=== PATIENT | female | born 1950 | race Caucasian/White ===

== ENCOUNTER 2017-12-28 13:47 | Emergency (ER) | payer MEDICARE, OTHER ==
[~2017-12-28] VITALS: Ht 162.6 cm; Wt 83.9 kg
[~2017-12-28 13:47] MED LIST: EFFEXOR XR75 MG PO; PRILOSEC20 MG PO; PROMETHAZINE HC50 MG PO; TOPAMAX200 MG PO; VICODIN ES 7.51 EACH PO
[2017-12-28] MEDS ORDERED: ONDANSETRON HCL INJ 2 MG/ML VIAL IV STA (13:56)
[2017-12-28] MEDS ORDERED: MORPHINE SULFATE INJ 4 MG/ML INJ IV STA (13:56)
[2017-12-28] MEDS ORDERED: SODIUM CHLORIDE 0.9% 1000ML 1,000 ML IV SCH (14:00)
[2017-12-28] MEDS ORDERED: LORAZEPAM INJ 2 MG/ML VIAL IV ONE (14:15)
[2017-12-28 15:38] VITALS: BP 160/90
[2017-12-29] MEDS ORDERED: DIAZEPAM 5 MG TAB PO SCH (09:00)
== END 2017-12-28 15:17 | disposition home or self-care (01) ==
LOC: FSED 13:47
DX: G43.709 Chronic migraine without aura, not intractable, without status migrainosus (principal)
CPT/HCPCS: 80053; 85025; 96374; 96375; 99283; J2060; J2270; J2405; J7030

== ENCOUNTER 2018-09-04 23:06 | Emergency (ER) | payer MEDICARE, OTHER ==
[~2018-09-04] VITALS: Ht 165.1 cm; Wt 83.9 kg
--- OUTSIDE RECORDS SUMMARY | 2018-09-04 23:09 | XMS REPORT | Continuity of Care Document ---
Author Author [facility] Interface Address Unknown Phone Unavailable Problems Problem Status Onset Date Classification Date Reported Comments Source RT HIP, RT TKR Active 09/11/2017 [facility] Unilateral primary osteoarthritis, right knee 08/29/2017 11/28/2017 [facility] UNK Active 07/18/2017 [facility]11 Active 07/18/2017 [facility] M17.11 UNILATERAL OA RIGHT KNEE Active 07/11/2017 [facility] Muscle weakness 11/28/2017 [facility] Unsteadiness on feet 11/04/2017 [facility] Unspecified abnormalities of gait and mobility 11/04/2017 [facility] Bacterial pneumonia Resolved Problem 11/28/2017 [facility] Bronchitis Resolved Problem 11/28/2017 [facility] DDD , cervical(<span ID="[id number]">Confirmed</span>) Active Problem 11/28/2017 [facility] Chronic knee pain Active Problem 11/28/2017 [facility] Chronic migraine Active Problem 11/28/2017 [facility] MVP (<span ID="[id number]">Confirmed</span>) Active Problem 11/28/2017 [facility] Anxiety and depression Active Problem 11/28/2017 [facility] Motion sickness Active Problem 11/28/2017 [facility] Stiffness of right knee, not elsewhere classified 11/28/2017 [facility] Pain in right knee 11/28/2017 [facility] Difficulty in walking, not elsewhere classified 11/28/2017 [facility] UNILATERAL PRIMARY OSTEOARTHRITIS, RIGHT Active [facility] ENCOUNTER FOR OTHER ORTHOPEDIC AFTERCARE Active [facility] STIFFNESS OF UNSPECIFIED HIP, NOT ELSEWH Active [facility] PAIN IN UNSPECIFIED HIP Active [facility] MUSCLE WEAKNESS (GENERALIZED) Active [facility] UNSTEADINESS ON FEET Active [facility] UNSPECIFIED ABNORMALITIES OF GAIT AND MO Active [facility] Medications Medication Details Route Status Patient Instructions Ordering Provider Order Date Source Acetaminophen 325 MG / Hydrocodone Bitartrate 7.5 MG Oral Tablet [[place] 7.5/325] 1 tab, PO, Q6H, PRN Pain, X 15 day, # 50 tab, 0 Refill(s), given to patient Active 09/13/2017 [facility] Acetaminophen 325 MG / Hydrocodone Bitartrate 7.5 MG Oral Tablet [[place] 7.5/325] 1 tab, Route: PO, Drug Form: TAB, Dosing Weight 84.545, kg, Q6H, PRN Pain Score 4-6, Start date: 09/13/17 12:29:00 CDT, Duration: 30 day, Stop date: 10/13/17 12:28:00 CDT Inactive 09/13/2017 [facility] Streptococcus pneumoniae serotype 1 capsular antigen diphtheria [id number] protein conjugate vaccine / Streptococcus pneumoniae serotype 14 capsular antigen diphtheria [id number] protein conjugate vaccine / Streptococcus pneumoniae serotype 18C capsular antigen d 0.5 mL, Route: IM, Drug Form: INJ, Daily, Start date: 09/12/17 12:00:00 CDT, Duration: 1 doses or times, Stop date: 09/12/17 12:00:00 CDTNotes: Shake well prior to use (Same as: Prevnar 13) Inactive 09/12/2017 [facility] Aspirin 325 MG Enteric Coated Tablet 325 mg=1 tab, PO, Q12H, # 60 tab, 0 Refill(s) Active 09/12/2017 [facility] ketOROLAC 15 mg/mL injectable solution 15 mg, 1 mL, Route: IV, Drug form: INJ, ONCE, Start date: 09/12/17 10:00:00 CDT, Stop date: 09/12/17 10:00:00 CDTNotes: (Same as:Toradol) IV bolus must be given >15 seconds. Give IM administration slowly and deeply into the muscle. Not for use > 4 days. Inactive 09/12/2017 [facility] venlafaxine 150 mg, 1 cap, Route: PO, Drug form: ERCAP, Daily, Dosing Weight 84.545, kg, Start date: 09/12/17 9:00:00 CDT, Duration: 30 day, Stop date: 10/11/17 9:00:00 CDTNotes: Do not open, crush, or chew. (Same As: Effexor XR) No Longer Active 09/12/2017 [facility] ropinirole 0.25 mg, 1 tab, Route: PO, Drug form: TAB, Daily, Dosing Weight 84.545, kg, Start date: 09/12/17 9:00:00 CDT, Duration: 30 day, Stop date: 10/11/17 9:00:00 CDTNotes: (Same as: Requip) No Longer Active 09/12/2017 [facility] Ketorolac 30 mg, Route: IVP, Drug form: INJ, ONCE, Dosing Weight 84.545, kg, Start date: 09/12/17 8:48:00 CDT, Stop date: 09/12/17 8:48:00 CDT Inactive 09/12/2017 [facility] topiramate 100 mg, 1 tab, Route: PO, Drug form: TAB, Bedtime, Dosing Weight 84.545, kg, Start date: 09/11/17 21:00:00 CDT, Duration: 30 day, Stop date: 10/10/17 21:00:00 CDTNotes: (Same As: Topamax) "Do Not Crush" No Longer Active 09/12/2017 [facility] sennosides, S[facility] 17.2 mg, 2 tab, Route: PO, Drug Form: TAB, Dosing Weight 82.682, kg, Bedtime, Start date: 09/11/17 21:00:00 CDT, Duration: 30 day, Stop date: 10/10/17 21:00:00 CDTNotes: (Same as: Senokot) No Longer Active 09/12/2017 [facility] Vancomycin 1,000 mg, Route: IVPB, Q12H, Dosing Weight 82.682, kg, Time Critical Medication, Start date: 09/11/17 18:00:00 CDT, Duration: 2 doses or times, Stop date: 09/12/17 6:00:00 CDT, Pharmacy to adjust dose for renal function, ABX Indication: Surgical Proph...Notes: TIME CRITICAL MEDICATION (Same As: Vancocin) Infusion rate 2001 mg: infuse over 2.5 hours For adult patients only: Round to nearest 250 mg per Medical Staff approval MEDICATION WASTE Product Size: 1000 mg Product Wasted: ___ mg No Longer Active 09/11/2017 [facility] gabapentin 300 MG Oral Capsule 300 mg, 1 cap, Route: PO, Drug form: CAP, TID, Dosing Weight 84.545, kg, Start date: 09/11/17 13:00:00 CDT, Duration: 30 day, Stop date: 10/11/17 9:00:00 CDT Inactive 09/11/2017 [facility] Acetaminophen 1,000 mg, 2 tab, Route: PO, Drug form: TAB, Q6H, Dosing Weight 82.682, kg, Start date: 09/11/17 13:00:00 CDT, Duration: 30 day, Stop date: 10/11/17 7:00:00 CDTNotes: Max acetaminophen 4000 mg/day (4 gm/day). (Same as: Tylenol Extra Strength) No Longer Active 09/11/2017 [facility] Aspirin 325 mg, Route: PO, Q12H, Dosing Weight 82.682, kg, For patients with risk of bleeding, Start date: 09/11/17 12:32:00 CDT, Stop date: 10/11/17 9:00:00 CDT Inactive 09/11/2017 [facility] Aspirin 325 mg, 1 tab, Route: PO, Drug form: ECTAB, Q12H, Dosing Weight 82.682, kg, For patients with risk of bleeding, Start date: 09/11/17 12:30:00 CDT, Duration: 30 day, Stop date: 10/11/17 9:00:00 CDTNotes: (Do Not Crush) Do not crush or chew. No Longer Active 09/11/2017 [facility] Tramadol 100 mg, 2 tab, Route: PO, Drug form: TAB, Q6H, Dosing Weight 82.682, kg, Start date: 09/11/17 10:02:00 CDT, Duration: 30 day, Stop date: 10/11/17 4:00:00 CDTNotes: Not to exceed 400mg/day. (Same As: Ultram) No Longer Active 09/11/2017 [facility] gabapentin 300 mg, 1 cap, Route: PO, Drug form: CAP, Q8H, Dosing Weight 82.682, kg, Start date: 09/11/17 10:01:00 CDT, Duration: 30 day, Stop date: 10/11/17 2:00:00 CDTNotes: (Same as: Neurontin) No Longer Active 09/11/2017 [facility] celecoxib 200 mg, 1 cap, Route: PO, Drug form: CAP, Q12H, Dosing Weight 82.682, kg, Start date: 09/11/17 10:00:00 CDT, Duration: 30 day, Stop date: 10/10/17 21:00:00 CDTNotes: NSAID. Please check indication. Not for seizure. (Same As: CeleBREX) No Longer Active 09/11/2017 [facility] Hydrocodone Bitartrate 7.5 MG / Ibuprofen 200 MG Oral Tablet 1 tab, Route: PO, Drug Form: TAB, Dosing Weight 82.682, kg, Q4H, PRN Pain Score 4-6, Start date: 09/11/17 9:46:00 CDT, Duration: 30 day, Stop date: 10/11/17 9:45:00 CDTNotes: (Same as: Vicoprofen) No Longer Active 09/11/2017 [facility] Docusate 100 mg, 1 cap, Route: PO, Drug form: CAP, BID, Dosing Weight 82.682, kg, Start date: 09/11/17 9:00:00 CDT, Duration: 30 day, Stop date: 10/10/17 17:00:00 CDTNotes: (Same as: Colace) (Do Not Crush) No Longer Active 09/11/2017 [facility] Aspirin 325 MG Enteric Coated Tablet 325 mg, Route: PO, Drug form: ECTAB, BID, Dosing Weight 82.682, kg, Start date: 09/11/17 9:00:00 CDT, Duration: 30 day, Stop date: 10/10/17 17:00:00 CDT Inactive 09/11/2017 [facility] Mupirocin 1 appl, Route: NASAL, Q12H, Drug form: OINT, Start date: 09/11/17 9:00:00 CDT, Duration: 30 day, Stop date: 10/10/17 21:00:00 CDT No Longer Active 09/11/2017 [facility] Al hydroxide/Mg hydroxide/simethicone 200 mg-200 mg-20 mg/5 mL oral suspension 30 mL, Route: PO, Drug Form: SUSP, Dosing Weight 82.682, kg, Q4H, PRN Indigestion, Start date: 09/11/17 8:32:00 CDT, Duration: 30 day, Stop date: 10/11/17 8:31:00 CDTNotes: (aluminum hydroxide-magnesium hyd- simethicone [phone]/5ml 30 ml ud MAC) No Longer Active 09/11/2017 [facility] tizanidine 2 mg, 0.5 tab, Route: PO, Drug form: TAB, Q6H, Dosing Weight 82.682, kg, PRN Muscle Spasms, Start date: 09/11/17 8:32:00 CDT, Duration: 30 day, Stop date: 10/11/17 8:31:00 CDTNotes: (Same As: Zanaflex) No Longer Active 09/11/2017 [facility] Diphenhydramine 12.5 mg, 0.5 tab, Route: PO, Drug form: TAB, Q6H, Dosing Weight 82.682, kg, PRN Itching, Start date: 09/11/17 8:32:00 CDT, Duration: 30 day, Stop date: 10/11/17 8:31:00 CDT No Longer Active 09/11/2017 [facility] Ondansetron 4 mg, 2 mL, Route: IVP, Drug form: INJ, Q8H, Dosing Weight 82.682, kg, PRN Nausea & Vomiting, Start date: 09/11/17 8:32:00 CDT, Duration: 30 day, Stop date: 10/11/17 8:31:00 CDTNotes: (Same as: Zofran) MEDICATION WASTE Product Size: 4 mg Product Wasted: ___ mg No Longer Active 09/11/2017 [facility] Trazodone 50 mg, 1 tab, Route: PO, Drug form: TAB, Bedtime, Dosing Weight 82.682, kg, PRN Insomnia, Start date: 09/11/17 8:32:00 CDT, Duration: 30 day, Stop date: 10/11/17 8:31:00 CDTNotes: (Same As: Desyrel) No Longer Active 09/11/2017 [facility] Hydromorphone 1 mg, 0.5 tab, Route: PO, Drug form: TAB, Q4H, Dosing Weight 82.682, kg, PRN Pain Score 7-10, Start date: 09/11/17 8:32:00 CDT, Stop date: 10/11/17 8:31:00 CDTNotes: (Same as: Dilaudid) No Longer Active 09/11/2017 [facility] Oxycodone Hydrochloride 5 MG Oral Tablet 10 mg, 2 tab, Route: PO, Drug form: TAB, Q4H, Dosing Weight 82.682, kg, PRN Pain Score 7-10, Start date: 09/11/17 8:32:00 CDT, Duration: 30 day, Stop date: 10/11/17 8:31:00 CDTNotes: (Same as: Roxicodone) No Longer Active 09/11/2017 [facility] 1/2 NS 1,000 mL 1,000 mL, Rate: 75 ml/hr, Infuse over: 13.3 hr, Route: IV, Dosing Weight 82.682 kg, Total Volume: 1,000, Start date: 09/11/17 8:32:00 CDT, Duration: 30 day, Stop date: 10/11/17 8:31:00 CDT, 1.96, m2 No Longer Active 09/11/2017 [facility] tranexamic acid (ANES) Route: IV, Drug form: INJ, ONCE, Stop date: 09/11/17 8:11:00 CDT Inactive 09/11/2017 [facility] Ondansetron 4 mg, 2 mL, Route: IVP, Drug form: INJ, ONCE, Dosing Weight 82.682, kg, PRN Nausea & Vomiting, Start date: 09/11/17 8:10:00 CDTNotes: (Same as: Zofran) MEDICATION WASTE Product Size: 4 mg Product Wasted: ___ mg Inactive 09/11/2017 [facility] Fentanyl 25 microgram, 0.5 mL, Route: IVP, Drug form: INJ, Q5Min, Dosing Weight 82.682, kg, PRN Pain Score 4-6, Priority: Routine, Start date: 09/11/17 8:10:00 CDT, Duration: 4 doses or times, Stop date: 09/12/17 0:00:00 CDTNotes: (Same as: Sublimaze) Preservative free. Inactive 09/11/2017 [facility] Flumazenil 0.2 mg, 2 mL, Route: IVP, Drug form: INJ, PRN, Dosing Weight 82.682, kg, PRN Benzodiazepine Reversal, Initial dose, Start date: 09/11/17 8:10:00 CDT, Stop date: 09/12/17 0:00:00 CDTNotes: (Same as: R omazicon) Inactive 09/11/2017 [facility] Naloxone 0.4 mg, 1 mL, Route: IVP, Drug form: INJ, Q2MIN, Dosing Weight 82.682, kg, PRN Narcotic Reversal, Start date: 09/11/17 8:10:00 CDT, Duration: 8 doses or times, Stop date: 09/12/17 0:00:00 CDTNotes: Same as Narcan Inactive 09/11/2017 [facility] Metoprolol 1 mg, 1 mL, Route: IVP, Drug form: INJ, Q5Min, Dosing Weight 82.682, kg, PRN Other -See Comment, Start date: 09/11/17 8:10:00 CDT, Duration: 5 doses or times, Stop date: 09/12/17 0:00:00 CDTNotes: (Same as: Lopressor) Push over 2 minutes Inactive 09/11/2017 [facility] phenylephrine (ANES) Route: IV, Drug form: INJ, ONCE, Stop date: 09/11/17 7:46:00 CDT Inactive 09/11/2017 [facility] ondansetron (ANES) Route: IV, Drug form: INJ, ONCE, Stop date: 09/11/17 7:31:00 CDT Inactive 09/11/2017 [facility] famotidine (ANES) Route: IV, Drug form: INJ, ONCE, Stop date: 09/11/17 7:31:00 CDT Inactive 09/11/2017 [facility] dexamethasone (ANES) Route: IV, Drug form: INJ, ONCE, Stop date: 09/11/17 7:31:00 CDT Inactive 09/11/2017 [facility] acetaminophen (ANES) Route: IV, Drug form: INJ, ONCE, Stop date: 09/11/17 7:31:00 CDT Inactive 09/11/2017 [facility] propofol (ANES) Route: IV, Drug form: INJ, ONCE, Stop date: 09/11/17 7:31:00 CDT Inactive 09/11/2017 [facility] fentaNYL (ANES) Route: IV, Drug form: INJ, ONCE, Stop date: 09/11/17 7:31:00 CDT Inactive 09/11/2017 [facility] vancomycin (ANES) Route: IV, Drug form: INJ, ONCE, Stop date: 09/11/17 7:31:00 CDT Inactive 09/11/2017 [facility] lidocaine (ANES) Route: IV, Drug form: INJ, ONCE, Stop date: 09/11/17 7:31:00 CDT Inactive 09/11/2017 [facility] ropivacaine 100 mL, Route: InFILtration(local), Drug Form: INJ, Dosing Weight 82.682, kg, ONCALL, Start date: 09/11/17 7:00:00 CDT, Duration: 30 day, Stop date: 10/11/17 6:59:00 CDT Inactive 09/11/2017 [facility] Cefazolin 2 gm, Route: IVPB, ONCALL, Dosing Weight 82.682, kg, Start date: 09/11/17 7:00:00 CDT, Duration: 1 doses or times, ABX Indication: Surgical Prophylaxis Inactive 09/11/2017 [facility] celecoxib 400 mg, Route: PO, ONCALL, Dosing Weight 82.682, kg, (for CrCl > 90 mL/min), Start date: 09/11/17 7:00:00 CDT, Duration: 30 day, Stop date: 10/11/17 6:59:00 CDT Inactive 09/11/2017 [facility] gabapentin 300 mg, Route: PO, ONCALL, Dosing Weight 82.682, kg, Start date: 09/11/17 7:00:00 CDT, Duration: 30 day, Stop date: 10/11/17 6:59:00 CDT Inactive 09/11/2017 [facility] Vancomycin 1,240.23 mg, Route: IVPB, ONCALL, Dosing Weight 82.682, kg, Start date: 09/11/17 7:00:00 CDT, Duration: 1 doses or times, ABX Indication: Surgical Prophylaxis Inactive 09/11/2017 [facility] Lactated Ringers Injection IV (ANES) 1000 mL Route: IV, Total Volume: 1,000, Start date: 09/11/17 6:30:00 CDT, Stop date: 09/11/17 7:30:00 CDT Inactive 09/11/2017 [facility] Calcium Chloride 0.0014 MEQ/ML / Potassium Chloride 0.004 MEQ/ML / Sodium Chloride 0.103 MEQ/ML / Sodium Lactate 0.028 MEQ/ML Injectable Solution 1,000 mL, Rate: 25 ml/hr, Infuse over: 40 hr, Route: IV, Dosing Weight 82.682 kg, Total Volume: 1,000, Start date: 09/11/17 6:26:00 CDT, Duration: 30 day, Stop date: 10/11/17 6:25:00 CDT, 1.96, m2 Inactive 09/11/2017 [facility] ropivacaine 100 mL, Route: InFILtration(local), Drug Form: INJ, Dosing Weight 82.682, kg, ONCALL, Start date: 09/11/17 5:00:00 CDT, Duration: 30 day, Stop date: 10/11/17 4:59:00 CDTNotes: NOT FOR IV use Ropivacaine 5 mg/mL (49.25 mL) Epinephrine 1 mg/mL (0.5 mL) Clonidine 0.1 mg/mL (0.8 mL) Ketorolac 30 mg/mL (1 mL) Normal Saline 48.45 mL No Longer Active 09/11/2017 [facility] gabapentin 300 MG Oral Capsule 300 mg=1 cap, PO, TID, # 90 cap, 0 Refill(s) Active 08/29/2017 [facility] promethazine 50 mg oral tablet 50 mg=1 tab, PO, BID, 0 Refill(s) Active 08/29/2017 [facility] venlafaxine 150 mg oral capsule, extended release 150 mg=1 cap, PO, Daily, # 30 cap, 0 Refill(s) Active 08/29/2017 [facility] Acetaminophen 325 MG / Hydrocodone Bitartrate 10 MG Oral Tablet [[place] 10/325] 1 tab, PO, TID, PRN Pain, # 90 day, 0 Refill(s) No Longer Active 08/29/2017 [facility] rOPINIRole 0.25 mg oral tablet 0.25 mg=1 tab, PO, Daily, # 30 tab, 1 Refill(s) Active 08/29/2017 [facility] topiramate 100 mg oral tablet 100 mg=1 tab, PO, Bedtime, 0 Refill(s) Active 08/29/2017 [facility] Hydrocodone Bit/Acetaminophen (Vicodin Es 7.5-750 Mg Tablet) 1 Each Tablet Active [facility] Omeprazole (Prilosec) 20 Mg Capsule.dr Daily Active [facility] Promethazine Hcl 50 Mg Tablet Active [facility] Topiramate (Topamax) 200 Mg Tablet Three Times A Day Active [facility] Venlafaxine Hcl (Effexor Xr) 75 Mg Cap.er.24h Daily Active [facility] Allergies, Adverse Reactions, Alerts Substance Category Reaction Severity Reaction type Status Date Reported Comments Source Penicillin Mild Allergy to Substance Active 03/19/2013 [facility] penicillin Assertion Drug allergy Active [facility] Immunizations Immunization Date Given Site Status Last Updated Comments Source pneumococcal 13-valent vaccine 09/12/2017 Left deltoid completed [facility] Results Order Name Results Value Reference Range Date Interpretation Comments Source HEMATOLOGY Hct 32.3 % 36.0 - 48.0 09/12/2017 [facility] HEMATOLOGY Hgb 10.8 g/dL 12.0 - 16.0 09/12/2017 [facility] CHEM PANEL eGFR 73 mL/min/1.73m2 09/11/2017 Result Comment: The eGFR is calculated using the CKD-EPI formula. In most young, healthy individuals the eGFR will be >90 mL/min/1.73m2. The eGFR declines with age. An eGFR of 60-89 may be normal in some populations, particularly the elderly, for whom the CKD-EPI formula has not been extensively validated. Use of the eGFR is not recommended in the following populations: Individuals with unstable creatinine concentrations, including patients and those with serious co-morbid conditions. Patients with extremes in muscle mass or diet. The data above are obtained from the National Kidney Disease Education Program (NKDEP) which additionally recommends that when the eGFR is used in patients with extremes of body mass index for purposes of drug dosing, the eGFR should be multiplied by the estimated BMI. [facility] CHEM PANEL CO2 19 meq/L 24 - 32 09/11/2017 [facility] CHEM PANEL Calcium Lvl 8.5 mg/dL 8.5 - 10.5 09/11/2017 [facility] CHEM PANEL Chloride Lvl 114 meq/L 95 - 109 09/11/2017 [facility] CHEM PANEL Potassium Lvl 4.6 meq/L 3.5 - 5.1 09/11/2017 [facility] CHEM PANEL Sodium Lvl 141 meq/L 135 - 145 09/11/2017 [facility] CHEM PANEL Creatinine Lvl 0.84 mg/dL 0.50 - 1.40 09/11/2017 [facility] CHEM PANEL BUN 16 mg/dL 7 - 22 09/11/2017 [facility] CHEM PANEL Glucose Lvl 105 mg/dL 70 - 99 09/11/2017 [facility] CHEM PANEL AGAP 12.6 meq/L 10.0 - 20.0 09/11/2017 [facility] PT 13.5 s 12.0 - 14.7 09/11/2017 [facility] INR 1.03 0.85 - 1.17 09/11/2017 [facility] MPV 7.6 fL 7.4 - 10.4 09/11/2017 [facility] Platelet 272 K/CMM 133 - 450 09/11/2017 [facility] RDW 13.7 % 11.5 - 14.5 09/11/2017 [facility] MCHC 33.0 g/dL 32.0 - 36.0 09/11/2017 [facility] MCH 34.1 pg 27.0 - 31.0 09/11/2017 [facility] MCV 103.3 fL 80.0 - 98.0 09/11/2017 [facility] Hct 37.4 % 36.0 - 48.0 09/11/2017 [facility] Hgb 12.4 g/dL 12.0 - 16.0 09/11/2017 [facility] RBC 3.62 M/CMM 4.20 - 5.40 09/11/2017 [facility] WBC 12.4 K/CMM 3.7 - 10.4 09/11/2017 [facility] Macrocyte 1+ *ABN* (09/11/17 11:05 AM) None Seen 09/11/2017 [facility] HEMATOLOGY Monocytes # 0.2 K/CMM 0.0 - 0.8 09/11/2017 [facility] HEMATOLOGY Lymphocytes # 1.0 K/CMM 1.0 - 5.5 09/11/2017 [facility] HEMATOLOGY Segs-Bands # 11.2 K/CMM 1.5 - 8.1 09/11/2017 [facility] HEMATOLOGY Basophils 0.2 % 0.0 - 1.0 09/11/2017 [facility] HEMATOLOGY Lymphocytes 8.2 % 20.0 - 40.0 09/11/2017 [facility] HEMATOLOGY Segs 90.1 % 45.0 - 75.0 09/11/2017 [facility] HEMATOLOGY Eosinophils 0.1 % 0.0 - 4.0 09/11/2017 [facility] HEMATOLOGY Monocytes 1.4 % 2.0 - 12.0 09/11/2017 [facility] SPECIAL CHEMISTRY Hgb A1C 5.3 % <=5.6 % 09/11/2017 [facility] BLOOD BANK RESULTS ABO/Rh O NEG 09/11/2017 [facility] BLOOD BANK RESULTS Antibody Scrn Negative (09/11/17 6:01 AM) 09/11/2017 [facility] Knee 1-2 Views unilateral DX Knee 1-2 Views unilateral DX Study: Right knee, 2 views Clinical Indication: - post total knee replacement Comparison: Plain films of the right knee from 08/29/2017 FINDINGS: 2 views of the right knee show new postoperative changes of total knee arthroplasty and patellar resurfacing with overlying soft tissue swelling and soft tissue gas. Anatomic alignment is maintained about the knee. No perihardware fracture is seen. IMPRESSION: Status post right total knee arthroplasty. SL: [id number] 09/11/2017 - - Read by: Alejo Benson MD Dictated Date/time: 09/11/17 09:39 Electronically Signed by: Alejo Benson MD 09/11/17 09:40 FINAL REPORT [facility] BLOOD [facility] RESULTS RBC product Product available 1 (08/29/17 4:45 PM) 08/29/2017 Result Comment: 09/11/2017 07:14 [id number] KLS notified Debbie 09/11/2017 07:14 [facility] BLOOD BANK RESULTS Antibody Scrn Negative (08/29/17 4:32 PM) 08/29/2017 [facility] BLOOD BANK RESULTS ABO/Rh O NEG 08/29/2017 [facility] HEMATOLOGY PT 13.2 s 12.0 - 14.7 08/29/2017 [facility] HEMATOLOGY INR 1.00 0.85 - 1.17 08/29/2017 [facility] HEMATOLOGY PTT 21.0 s 22.9 - 35.8 08/29/2017 [facility] IMMUNOLOGY HIV Ag/Ab 4th Gen Negative *NA* (08/29/17 4:32 PM) Negative 08/29/2017 [facility] Knee 3 views DX Knee 3 views DX Patient Name: NAS ALMAZAN : 1950; Age: 67 years y/o Female MR: [id number] * RIGHT KNEE, 3 views History: right knee pain Technique: Frontal, lateral and axial patellar radiographs of the right knee were obtained. IMPRESSION: 1. Degenerative change involving the right knee; Kellgren - Les Knee Osteoarthritis Grading Scale 3. 2. Moderate degenerative changes involving the lateral compartment with moderate joint space narrowing, mild to moderate lateral marginal osteophyte formation, spurring from the tibial spines. There is mild resultant valgus deformity. 3. The medial compartment is relatively spared. 4. Very mild degenerative change involving the patellofemoral joint. 5. No fracture, destructive lesion, or other osseous abnormality. 6. No evidence of joint effusion. SL: GHADA 08/29/2017 - - Read by: Valeriy Leon MD Dictated Date/time: 08/29/17 18:33 Electronically Signed by: Valeriy Leon MD 08/29/17 18:36 FINAL REPORT [facility] Bone length scanogram DX Bone length scanogram DX Patient Name: NAS ALMAZAN : 1950; Age: 67 years y/o Female MR: [id number] * BONE LENGTH SCANOGRAM, RIGHT LOWER EXTREMITY (weightbearing long leg images of the right lower extremity) HISTORY: Right knee arthritis, preoperative for right knee arthroplasty. TECHNIQUE: Frontal standing (weightbearing) images of the right lower extremity were obtained from the right hip to the right ankle. IMPRESSION: There are moderate degenerative changes involving lateral compartment with mild to moderate joint space narrowing and resultant mild valgus deformity. No other osseous abnormalities are seen. The right ankle and right hip are grossly normal. SL: GHADA 08/29/2017 - - Read by: Valeriy Leon MD Dictated Date/time: 08/29/17 18:21 Electronically Signed by: Valeriy Leon MD 08/29/17 18:22 FINAL REPORT [facility] Vital Signs Vital Sign Value Date Comments Source Systolic (mm Hg) 109 09/13/2017 [facility] Diastolic (mm Hg) 71 09/13/2017 [facility] Temperature Oral (F) 97.4 F 09/13/2017 [facility] Heart Rate 87 09/13/2017 [facility] Respitory Rate 18 09/13/2017 [facility] Heart Rate 91 09/13/2017 [facility] Respitory Rate 18 09/13/2017 [facility] Systolic (mm Hg) 124 09/13/2017 [facility] Diastolic (mm Hg) 73 09/13/2017 [facility] Temperature Oral (F) 97.5 F 09/13/2017 [facility] Temperature Oral (F) 97 F 09/13/2017 [facility] Systolic (mm Hg) 134 09/13/2017 [facility] Diastolic (mm Hg) 84 09/13/2017 [facility] Respitory Rate 18 09/13/2017 [facility] Heart Rate 85 09/13/2017 [facility] BMI Calculated 31.99 09/11/2017 [facility] Weight 84.545 09/11/2017 [facility] Height 162.56 cm 09/11/2017 [facility] Weight 82.682 08/29/2017 [facility] BMI Calculated 31.29 08/29/2017 [facility] Height 162.56 cm 08/29/2017 [facility] Encounters Location Location Details Encounter Type Encounter Number Reason For Visit Attending Provider ADM Date DC Date Status Source [facility] [id number] Robin Chen 07/24/2017 08/23/2017 [facility] Inpatient [id number] Robin Chen 09/11/2017 09/13/2017 [facility] [id number] Robin Chen 10/03/2017 11/02/2017 [facility] [id number] LARA MYERS MD 12/28/2017 12/28/2017 [facility] Procedures Procedure Code Date Perfomer Comments Source Rotator cuff repair<sup>1</sup> [id number] [facility] Rotator cuff repair<sup>1</sup> [id number] [facility]
[2018-09-04] MEDS ORDERED: LORAZEPAM 1 MG TAB PO PRN (23:30)
[2018-09-04] MEDS ORDERED: MORPHINE SULFATE INJ 4 MG/ML INJ 1ML IM ONE (23:30)
[2018-09-04 23:56] VITALS: BP 131/88
== END 2018-09-05 00:03 | disposition home or self-care (01) ==
LOC: FSED 23:06
DX: G43.909 Migraine, unspecified, not intractable, without status migrainosus (principal); R11.0 Nausea; Z87.891 Personal history of nicotine dependence
CPT/HCPCS: 99282

== ENCOUNTER 2020-08-26 14:32 | Emergency (ER) | payer MEDICARE, OTHER ==
[~2020-08-26] VITALS: Ht 162.6 cm; Wt 72.6 kg
[2020-08-26] MEDS ORDERED: KETOROLAC TROMETHAMINE 30 MG/ML VIAL IV STA (14:35)
[2020-08-26] MEDS ORDERED: DIPHENHYDRAMINE HCL 25 MG CAP PO ONE (14:45)
[2020-08-26] MEDS ORDERED: METOCLOPRAMIDE HCL 10 MG/2ML VIAL IV ONE (14:45)
[2020-08-26] MEDS ORDERED: SODIUM CHLORIDE 0.9% 1000ML 1,000 ML IV SCH (14:45)
[2020-08-26] MEDS ORDERED: MAGNESIUM SULF 1GRAM/DEXTROSE 100 ML IV ONE (16:00)
[2020-08-26] MEDS ORDERED: ACETAMINOPHEN 325 MG TAB PO ONE (16:00)
[2020-08-26] MEDS ORDERED: HALOPERIDOL LACTATE 5 MG/ML VIAL IM ONE (16:10)
[2020-08-26 16:49] VITALS: BP 130/75
== END 2020-08-26 16:50 | disposition home or self-care (01) ==
LOC: ER 14:34
DX: G43.909 Migraine, unspecified, not intractable, without status migrainosus (principal); I10 Essential (primary) hypertension; E78.5 Hyperlipidemia, unspecified; K21.9 Gastro-esophageal reflux disease without esophagitis
CPT/HCPCS: 70450; 99283; J1630; J1885; J2765; J3475; J7030

== ENCOUNTER 2020-09-10 10:20 | Observation (INO) | payer MEDICARE, OTHER ==
[~2020-09-10] VITALS: Ht 162.6 cm; Wt 72.1 kg
[2020-09-10] MEDS ORDERED: FAMOTIDINE 20 MG/2 ML VIAL IV STA (10:51)
[2020-09-10 11:33] LABS: BASOPHILS # (AUTO) 0.1 (0.0-0.1); BASOPHILS % 0.9 % (0.0-1.0); EOSINOPHILS # (AUTO) 0.2 (0.0-0.4); EOSINOPHILS % 3.1 % (0.0-6.0); HEMOGLOBIN 13.4 g/dL (12.0-16.0); LYMPHOCYTES # (AUTO) 3.8 (1.0-3.2); LYMPHOCYTES % 49.2 % (18.0-39.1); MEAN CORPUSCULAR HEMOGLOBIN 33.4 pg (28-32); MEAN CORPUSCULAR HGB CONC 32.7 g/dL (31-35); MEAN CORPUSCULAR VOLUME 102.2 fL (81-99); MONOCYTES # (AUTO) 0.4 (0.2-0.8); MONOCYTES % 5.3 % (4.4-11.3); NEUTROPHILS # (AUTO) 3.2 (2.1-6.9); NEUTROPHILS % 41.2 % (38.7-80.0); PLATELET COUNT 348 x10e3/uL (140-360); RED BLOOD COUNT 4.01 x10e6/uL (3.6-5.1)
[2020-09-10 12:00] LABS: ALANINE AMINOTRANSFERASE 22 IU/L (0-55); ALBUMIN 3.6 g/dL (3.5-5.0); ALKALINE PHOSPHATASE 108 IU/L (40-150); ANION GAP 13.5 mmol/L (8-16); BLOOD UREA NITROGEN 21 mg/dL (7-26); BUN/CREATININE RATIO 32 (6-25); CALCIUM 9.3 mg/dL (8.4-10.2); CARBON DIOXIDE 26 mmol/L (22-29); CHLORIDE 106 mmol/L (98-107); CREATINE KINASE 87 IU/L (29-168); CREATININE, SERUM 0.65 mg/dL (0.57-1.11); EST GLOMERULAR FILTRATION RATE > 60 ML/MIN (60-); GLUCOSE 104 mg/dL (74-118); POTASSIUM 3.5 mmol/L (3.5-5.1); SODIUM 142 mmol/L (136-145)
[2020-09-10] MEDS ORDERED: ASPIRIN 81 MG CHEW TAB PO ONE (12:00)
[2020-09-10] MEDS ORDERED: MORPHINE SULFATE INJ 4 MG/ML INJ 1ML IV STA (12:22)
[2020-09-10] MEDS ORDERED: ROPINIROLE HCL2 MG PO (12:33)
[2020-09-10] MEDS ORDERED: HYDROCODON-ACE1 EAC9 (12:33)
[2020-09-10] MEDS ORDERED: GABAPENTIN300 MG PO (12:33)
[2020-09-10] MEDS ORDERED: FUROSEMIDE20 MG (12:34)
[2020-09-10] MEDS: ASPIRIN 81 MG CHEW TAB PO ONE ×2 (12:34→12:43)
[2020-09-10] MEDS ORDERED: ATORVASTATIN CA40 MG (12:34)
[2020-09-10] MEDS: ONDANSETRON HCL INJ 2MG/ML 2ML 2 MG/ML VIAL IV PRN ×2 (12:35→18:43)
[2020-09-10] MEDS ORDERED: SODIUM CHLORIDE 0.9% 50ML 50 ML ONE (12:52)
[2020-09-10] MEDS ORDERED: IOPAMIDOL 370 MG/ML 200 ML INFUS..BTL INJ ONE (12:53)
[2020-09-10 13:07] VITALS: BP 116/86
[2020-09-10 13:17] VITALS: BP 117/86
[2020-09-10 15:53] VITALS: BP 112/83
[2020-09-10] MEDS: MORPHINE SULFATE INJ 4 MG/ML INJ 1ML IV PRN ×2 (15:53→20:05)
[2020-09-10 16:53] LABS: CHOL/HDL RATIO 3.2 (3.0-3.6)
[2020-09-10] MEDS: PANTOPRAZOLE SOD 40 MG TABEC PO SCH (16:54)
[2020-09-10] MEDS: VENLAFAXINE HCL 75 MG CAPCR PO SCH (16:57)
[2020-09-10] MEDS ORDERED: MAGNESIUM/ALUMINUM/SIMETHICONE 30 ML UDC PO PRN (17:15)
[2020-09-10] MEDS: HYDROCODONE/APAP 10MG-325MG TAB PO PRN (18:43)
[2020-09-10 19:11] LABS: CREATINE KINASE 68 IU/L (29-168)
[2020-09-10] MEDS: TOPIRAMATE 100 MG TAB PO SCH (19:31)
[2020-09-10] MEDS: GABAPENTIN 300 MG CAP PO SCH (19:31)
[2020-09-10 20:00] VITALS: BP 117/78
[2020-09-10] MEDS ORDERED: ROPINIROLE HCL 2 MG TAB PO SCH (21:00)
[2020-09-10] MEDS ORDERED: TOPIRAMATE 100 MG PO SCH (21:00)
[2020-09-10 21:45] VITALS: BP 117/78
[2020-09-11] VITALS: BP 101/69
[2020-09-11] MEDS: MORPHINE SULFATE INJ 4 MG/ML INJ 1ML IV PRN ×4 (00:09→16:19)
[2020-09-11] MEDS: ONDANSETRON HCL INJ 2MG/ML 2ML 2 MG/ML VIAL IV PRN ×4 (00:16→16:19)
[2020-09-11] MEDS: HYDROCODONE/APAP 10MG-325MG TAB PO PRN (02:45)
[2020-09-11 04:23] VITALS: BP 102/73
[2020-09-11 07:04] LABS: BASOPHILS # (AUTO) 0.1 (0.0-0.1); BASOPHILS % 0.6 % (0.0-1.0); EOSINOPHILS # (AUTO) 0.3 (0.0-0.4); EOSINOPHILS % 3.2 % (0.0-6.0); HEMATOCRIT 37.2 % (34.2-44.1); HEMOGLOBIN 12.1 g/dL (12.0-16.0); LYMPHOCYTES # (AUTO) 2.8 (1.0-3.2); LYMPHOCYTES % 33.5 % (18.0-39.1); MEAN CORPUSCULAR HEMOGLOBIN 33.7 pg (28-32); MEAN CORPUSCULAR HGB CONC 32.5 g/dL (31-35); MEAN CORPUSCULAR VOLUME 103.6 fL (81-99); MONOCYTES # (AUTO) 0.6 (0.2-0.8); MONOCYTES % 7.1 % (4.4-11.3); NEUTROPHILS # (AUTO) 4.7 (2.1-6.9); NEUTROPHILS % 55.4 % (38.7-80.0); PLATELET COUNT 304 x10e3/uL (140-360); RED BLOOD COUNT 3.59 x10e6/uL (3.6-5.1); RED CELL DISTRIBUTION WIDTH 12.3 % (11.7-14.4)
[2020-09-11 07:35] LABS: CREATINE KINASE 53 IU/L (29-168)
[2020-09-11 08:12] LABS: ALANINE AMINOTRANSFERASE 19 IU/L (0-55); ALBUMIN 3.2 g/dL (3.5-5.0); ALBUMIN/GLOBULIN RATIO 0.9 (0.8-2.0); ALKALINE PHOSPHATASE 86 IU/L (40-150); ANION GAP 12.8 mmol/L (8-16); BLOOD UREA NITROGEN 18 mg/dL (7-26); BUN/CREATININE RATIO 23 (6-25); CALCIUM 8.9 mg/dL (8.4-10.2); CARBON DIOXIDE 27 mmol/L (22-29); CHLORIDE 106 mmol/L (98-107); EST GLOMERULAR FILTRATION RATE > 60 ML/MIN (60-); GLUCOSE 92 mg/dL (74-118); POTASSIUM 3.8 mmol/L (3.5-5.1); SODIUM 142 mmol/L (136-145)
[2020-09-11 08:31] VITALS: BP 102/77
[2020-09-11] MEDS ORDERED: FUROSEMIDE 20 MG TAB PO SCH (09:00)
[2020-09-11] MEDS ORDERED: OMEPRAZOLE 20 MG CAP PO SCH (09:00)
[2020-09-11 09:16] VITALS: BP 102/77
[2020-09-11] MEDS: PANTOPRAZOLE SOD 40 MG TABEC PO SCH ×2 (09:24→16:18)
[2020-09-11] MEDS: VENLAFAXINE HCL 75 MG CAPCR PO SCH ×2 (09:24→16:18)
[2020-09-11] MEDS: GABAPENTIN 300 MG CAP PO SCH ×2 (09:25→16:18)
[2020-09-11] MEDS: TOPIRAMATE 100 MG TAB PO SCH ×2 (09:25→16:18)
[2020-09-11 11:37] VITALS: BP 97/61
[2020-09-11] MEDS ORDERED: REGADENOSON 0.4 MG/5 ML SYR IV ONE (14:57)
== END 2020-09-11 18:22 | disposition home or self-care (01) ==
LOC: ER 10:22 → ERHOLD 12:12 → MED/SURG3 13:09
PROVIDERS: ADMIT Family Medicine; ATTEND Family Medicine
DX: R07.89 Other chest pain (principal); I10 Essential (primary) hypertension; K21.9 Gastro-esophageal reflux disease without esophagitis; E78.5 Hyperlipidemia, unspecified; R10.13 Epigastric pain; K29.70 Gastritis, unspecified, without bleeding; Z88.0 Allergy status to penicillin; Z20.822 Contact with and (suspected) exposure to COVID-19
CPT/HCPCS: 36415 ×2; 71045; 71260; 78452; 80053 ×2; 80061; 82550 ×2; 82553 ×2; 83880; 84484 ×2; 85025 ×2; 85379; 93005 ×2; 93017; 93306; 99284; A9502; G0378 ×2; J2270 ×2; J2405 ×2; J2785; Q9967; S0164 ×2; U0002

== ENCOUNTER 2021-07-30 00:43 | Emergency (ER) | payer MEDICARE, OTHER ==
[~2021-07-30] VITALS: Ht 162.6 cm; Wt 72.1 kg
[~2021-07-30 00:43] MED LIST changes: +ATORVASTATIN CA40 MG; +FUROSEMIDE20 MG; +GABAPENTIN300 MG PO; +HYDROCODON-ACE1 EAC9; +ROPINIROLE HCL2 MG PO
[2021-07-30] MEDS ORDERED: BUPIVACAINE HCL 0.5% 10ML MPF VIAL INJ ONE (01:15)
== END 2021-07-30 01:45 | disposition home or self-care (01) ==
LOC: ER 00:47
DX: K08.89 Other specified disorders of teeth and supporting structures (principal); I10 Essential (primary) hypertension; E78.5 Hyperlipidemia, unspecified; K21.9 Gastro-esophageal reflux disease without esophagitis
CPT/HCPCS: 99282

== ENCOUNTER 2021-07-31 19:32 | Emergency (ER) | payer MEDICARE, OTHER ==
[~2021-07-31] VITALS: Ht 162.6 cm; Wt 72.1 kg
[2021-07-31] MEDS ORDERED: KETOROLAC TROMETHAMINE 30 MG/ML VIAL IV STA (19:51)
[2021-07-31] MEDS ORDERED: Clindamycin INJ 900 MG 900 MG in SODIUM CHLORIDE 0.9% 50ML 50 ML IV STA (19:51)
[2021-07-31] MEDS ORDERED: FENTANYL CITRATE/PF 100MCG/2 ML INJ IV ONE (20:00)
[2021-07-31 20:06] LABS: BASOPHILS # (AUTO) 0.1 (0.0-0.1); BASOPHILS % 0.6 % (0.0-1.0); EOSINOPHILS # (AUTO) 0.1 (0.0-0.4); EOSINOPHILS % 1.5 % (0.0-6.0); HEMATOCRIT 38.3 % (34.2-44.1); HEMOGLOBIN 12.4 g/dL (12.0-16.0); LYMPHOCYTES % 25.4 % (18.0-39.1); MEAN CORPUSCULAR HEMOGLOBIN 33.4 pg (28-32); MEAN CORPUSCULAR HGB CONC 32.4 g/dL (31-35); MEAN CORPUSCULAR VOLUME 103.2 fL (81-99); MONOCYTES # (AUTO) 0.7 (0.2-0.8); MONOCYTES % 8.6 % (4.4-11.3); NEUTROPHILS # (AUTO) 5.1 (2.1-6.9); NEUTROPHILS % 63.5 % (38.7-80.0); PLATELET COUNT 297 x10e3/uL (140-360); RED BLOOD COUNT 3.71 x10e6/uL (3.6-5.1); RED CELL DISTRIBUTION WIDTH 14.9 % (11.7-14.4)
[2021-07-31] MEDS ORDERED: ONDANSETRON HCL INJ 2MG/ML 2ML 2 MG/ML VIAL ONE (20:16)
[2021-07-31 20:21] LABS: ANION GAP 11.9 mmol/L (8-16); CALCIUM 10.3 mg/dL (8.4-10.2); CREATININE, SERUM 0.77 mg/dL (0.57-1.11); POTASSIUM 3.9 mmol/L (3.5-5.1)
[2021-07-31] MEDS ORDERED: SODIUM CHLORIDE 0.9% 1000ML 1,000 ML ONE (20:29)
[2021-07-31] MEDS ORDERED: IOPAMIDOL 370 MG/ML 200 ML INFUS..BTL INJ ONE (20:41)
[2021-07-31] MEDS ORDERED: SODIUM CHLORIDE 0.9% 50ML 50 ML ONE (20:41)
== END 2021-07-31 22:39 | disposition home or self-care (01) ==
LOC: ER 19:51
DX: K08.89 Other specified disorders of teeth and supporting structures (principal)
CPT/HCPCS: 36415; 70487; 80048; 85025; 99283; J1885; J2405; J3010; J7030; Q9967

== ENCOUNTER 2021-08-02 14:43 | Inpatient (IN) | payer MEDICARE, OTHER ==
[~2021-08-02] VITALS: Ht 162.6 cm; Wt 73.9 kg
[2021-08-02] MEDS ORDERED: SODIUM CHLORIDE 0.9% 1000ML 1,000 ML IV STA (14:58)
[2021-08-02 15:16] LABS: BASOPHILS # (AUTO) 0.1 (0.0-0.1); BASOPHILS % 0.5 % (0.0-1.0); EOSINOPHILS % 0.4 % (0.0-6.0); HEMATOCRIT 36.1 % (34.2-44.1); HEMOGLOBIN 11.9 g/dL (12.0-16.0); LYMPHOCYTES # (AUTO) 1.5 (1.0-3.2); LYMPHOCYTES % 15.9 % (18.0-39.1); MEAN CORPUSCULAR HEMOGLOBIN 33.9 pg (28-32); MEAN CORPUSCULAR VOLUME 102.8 fL (81-99); MONOCYTES # (AUTO) 0.8 (0.2-0.8); NEUTROPHILS # (AUTO) 6.9 (2.1-6.9); NEUTROPHILS % 73.8 % (38.7-80.0); PLATELET COUNT 339 x10e3/uL (140-360); RED BLOOD COUNT 3.51 x10e6/uL (3.6-5.1)
[2021-08-02 15:27] LABS: INR 1.05; PROTHROMBIN TIME 14.6 seconds (11.9-14.5)
[2021-08-02 15:28] LABS: PARTIAL THROMBOPLASTIN TIME 30.3 seconds (23.8-35.5)
[2021-08-02] MEDS ORDERED: MEROPENEM 1 GM in SODIUM CHLORIDE 0.9% 100 ML IV ONE (15:30)
[2021-08-02 15:35] LABS: ALBUMIN 3.2 g/dL (3.5-5.0); ALBUMIN/GLOBULIN RATIO 0.7 (0.8-2.0); ANION GAP 12.8 mmol/L (8-16); CALCIUM 10.3 mg/dL (8.4-10.2); CREATININE, SERUM 0.72 mg/dL (0.57-1.11); MAGNESIUM 1.9 MG/DL (1.3-2.1); POTASSIUM 3.8 mmol/L (3.5-5.1)
[2021-08-02] MEDS ORDERED: ONDANSETRON HCL INJ 2MG/ML 2ML 2 MG/ML VIAL IV STA (15:38)
[2021-08-02] MEDS ORDERED: Morphine 4mg Syringe 4 MG/ML INJ IV STA (15:38)
[2021-08-02 15:41] LABS: CREATINE KINASE MB 0.5 ng/mL (0-5.0)
[2021-08-02] MEDS ORDERED: SODIUM CHLORIDE 0.9% 500ML 500 ML IV ONE (15:45)
[2021-08-02] MEDS ORDERED: Vancomycin IV 1 GM in SODIUM CHLORIDE 0.9% 250ML 250 ML IV ONE (16:00)
[2021-08-02] MEDS ORDERED: ONDANSETRON HCL INJ 2MG/ML 2ML 2 MG/ML VIAL IV PRN (17:15)
[2021-08-02] MEDS: KETOROLAC TROMETHAMINE 30 MG/ML VIAL IV PRN ×2 (17:38→23:22)
[2021-08-02] MEDS: HYDROMORPHONE 1MG/1ML INJ IV PRN (17:38)
[2021-08-02] MEDS: SODIUM CHLORIDE 0.9% 1000ML 1,000 ML IV SCH (18:00)
[2021-08-02 18:21] VITALS: BP 131/72
[2021-08-02 19:35] VITALS: BP 121/71
[2021-08-02] MEDS ORDERED: ATORVASTATIN CA40 MG PO (20:00)
[2021-08-02 20:03] VITALS: BP 121/71
[2021-08-02 20:07] VITALS: BP 121/71
[2021-08-02] MEDS ORDERED: TYLENOL 3 PO (20:12)
[2021-08-02] MEDS: GABAPENTIN 300 MG CAP PO SCH (21:30)
[2021-08-02] MEDS: ROPINIROLE HCL 2 MG TAB PO SCH (21:30)
[2021-08-02] MEDS: MEROPENEM 1 GM in SODIUM CHLORIDE 0.9% 100 ML IV SCH (21:30)
[2021-08-03] VITALS (9 sets, daily range): BP systolic 110–133; BP diastolic 69–84
[2021-08-03] MEDS: HYDROMORPHONE 1MG/1ML INJ IV PRN ×4 (00:13→18:55)
[2021-08-03] MEDS: SODIUM CHLORIDE 0.9% 1000ML 1,000 ML IV SCH ×2 (03:15→10:51)
[2021-08-03] MEDS ORDERED: Vancomycin IV 1 GM in SODIUM CHLORIDE 0.9% 250ML 250 ML IV SCH (05:00)
[2021-08-03 05:44] LABS: BASOPHILS # (AUTO) 0.1 (0.0-0.1); BASOPHILS % 0.6 % (0.0-1.0); EOSINOPHILS # (AUTO) 0.1 (0.0-0.4); EOSINOPHILS % 1.5 % (0.0-6.0); HEMATOCRIT 34.1 % (34.2-44.1); LYMPHOCYTES # (AUTO) 2.5 (1.0-3.2); LYMPHOCYTES % 28.4 % (18.0-39.1); MEAN CORPUSCULAR HEMOGLOBIN 33.5 pg (28-32); MEAN CORPUSCULAR HGB CONC 32.3 g/dL (31-35); MONOCYTES # (AUTO) 0.6 (0.2-0.8); MONOCYTES % 6.8 % (4.4-11.3); NEUTROPHILS # (AUTO) 5.5 (2.1-6.9); NEUTROPHILS % 62.2 % (38.7-80.0); PLATELET COUNT 331 x10e3/uL (140-360); RED BLOOD COUNT 3.28 x10e6/uL (3.6-5.1)
[2021-08-03] MEDS: MEROPENEM 1 GM in SODIUM CHLORIDE 0.9% 100 ML IV SCH (05:44)
[2021-08-03 06:11] LABS: ALBUMIN 2.7 g/dL (3.5-5.0); ALBUMIN/GLOBULIN RATIO 0.7 (0.8-2.0); ANION GAP 11.1 mmol/L (8-16); CALCIUM 9.8 mg/dL (8.4-10.2); CREATININE, SERUM 0.71 mg/dL (0.57-1.11); POTASSIUM 4.1 mmol/L (3.5-5.1)
[2021-08-03] MEDS: ACETAMINOPHEN 325 MG TAB PO PRN ×2 (06:40→22:09)
[2021-08-03] MEDS: VENLAFAXINE HCL 75 MG CAPCR PO SCH ×2 (08:02→16:07)
[2021-08-03] MEDS: OMEPRAZOLE 20 MG CAP PO SCH (08:02)
[2021-08-03] MEDS: FUROSEMIDE 20 MG TAB PO SCH (08:02)
[2021-08-03] MEDS: GABAPENTIN 300 MG CAP PO SCH ×3 (08:02→20:36)
[2021-08-03] MEDS: KETOROLAC TROMETHAMINE 30 MG/ML VIAL IV PRN ×3 (08:05→21:56)
[2021-08-03] MEDS: Vancomycin IV 1 GM in SODIUM CHLORIDE 0.9% 250ML 250 ML IV SCH ×2 (13:15→23:57)
[2021-08-03] MEDS ORDERED: METRONIDAZOLE 500MG/NS 100ML 100 ML IV SCH (14:00)
[2021-08-03] MEDS: ROPINIROLE HCL 2 MG TAB PO SCH (20:36)
[2021-08-04] VITALS (7 sets, daily range): BP systolic 99–133; BP diastolic 72–86
[2021-08-04] MEDS: HYDROMORPHONE 1MG/1ML INJ IV PRN ×6 (01:43→22:29)
[2021-08-04] MEDS: OMEPRAZOLE 20 MG CAP PO SCH (08:30)
[2021-08-04] MEDS ORDERED: CEFTRIAXONE 2 GM in SODIUM CHLORIDE 0.9% 100 ML IV SCH (09:00)
[2021-08-04] MEDS: GABAPENTIN 300 MG CAP PO SCH ×3 (09:04→20:44)
[2021-08-04] MEDS: FUROSEMIDE 20 MG TAB PO SCH (09:04)
[2021-08-04] MEDS: VENLAFAXINE HCL 75 MG CAPCR PO SCH ×2 (09:04→17:50)
[2021-08-04] MEDS: ACETAMINOPHEN 325 MG TAB PO PRN (10:56)
[2021-08-04 12:20] LABS: BASOPHILS # (AUTO) 0.1 (0.0-0.1); BASOPHILS % 0.8 % (0.0-1.0); EOSINOPHILS # (AUTO) 0.3 (0.0-0.4); EOSINOPHILS % 5.7 % (0.0-6.0); HEMATOCRIT 31.1 % (34.2-44.1); HEMOGLOBIN 10.1 g/dL (12.0-16.0); LYMPHOCYTES # (AUTO) 1.4 (1.0-3.2); LYMPHOCYTES % 24.1 % (18.0-39.1); MEAN CORPUSCULAR HEMOGLOBIN 33.3 pg (28-32); MEAN CORPUSCULAR HGB CONC 32.5 g/dL (31-35); MEAN CORPUSCULAR VOLUME 102.6 fL (81-99); MONOCYTES # (AUTO) 0.5 (0.2-0.8); MONOCYTES % 7.6 % (4.4-11.3); NEUTROPHILS # (AUTO) 3.7 (2.1-6.9); NEUTROPHILS % 61.5 % (38.7-80.0); PLATELET COUNT 347 x10e3/uL (140-360); RED BLOOD COUNT 3.03 x10e6/uL (3.6-5.1); RED CELL DISTRIBUTION WIDTH 14.6 % (11.7-14.4)
[2021-08-04 12:33] LABS: ALBUMIN 2.5 g/dL (3.5-5.0); ALBUMIN/GLOBULIN RATIO 0.7 (0.8-2.0); CALCIUM 9.4 mg/dL (8.4-10.2); CREATININE, SERUM 0.67 mg/dL (0.57-1.11)
[2021-08-04] MEDS ORDERED: ONDANSETRON HCL 4 MG ORAL DISINTEGRATING TAB PO PRN (13:15)
[2021-08-04] MEDS: ROPINIROLE HCL 2 MG TAB PO SCH (20:44)
[2021-08-04] MEDS: Vancomycin IV 1 GM in SODIUM CHLORIDE 0.9% 250ML 250 ML IV SCH (20:44)
[2021-08-05] VITALS (8 sets, daily range): BP systolic 117–143; BP diastolic 72–93
[2021-08-05] MEDS: HYDROMORPHONE 1MG/1ML INJ IV PRN ×5 (02:25→20:37)
[2021-08-05] MEDS: OMEPRAZOLE 20 MG CAP PO SCH (08:02)
[2021-08-05] MEDS: DEXAMETHASONE SOD PHOS 10 MG/1 ML VIAL IV SCH ×3 (08:06→21:38)
[2021-08-05] MEDS: VENLAFAXINE HCL 75 MG CAPCR PO SCH ×2 (08:09→17:21)
[2021-08-05] MEDS: Vancomycin IV 1 GM in SODIUM CHLORIDE 0.9% 250ML 250 ML IV SCH ×2 (08:09→20:37)
[2021-08-05] MEDS: FUROSEMIDE 20 MG TAB PO SCH (08:09)
[2021-08-05] MEDS: GABAPENTIN 300 MG CAP PO SCH ×3 (08:09→20:37)
[2021-08-05] MEDS: ROPINIROLE HCL 2 MG TAB PO SCH (20:37)
[2021-08-06] MEDS: HYDROMORPHONE 1MG/1ML INJ IV PRN ×3 (00:04→08:42)
[2021-08-06 00:45] VITALS: BP 120/80
[2021-08-06 04:00] VITALS: BP 126/85
[2021-08-06] MEDS: OMEPRAZOLE 20 MG CAP PO SCH (07:30)
[2021-08-06 08:15] VITALS: BP 134/84
[2021-08-06 08:40] VITALS: BP 134/84
[2021-08-06] MEDS: KETOROLAC TROMETHAMINE 30 MG/ML VIAL IV PRN ×2 (08:49→16:20)
[2021-08-06] MEDS: GABAPENTIN 300 MG CAP PO SCH ×2 (09:00→15:00)
[2021-08-06] MEDS: VENLAFAXINE HCL 75 MG CAPCR PO SCH ×2 (09:00→16:20)
[2021-08-06] MEDS: FUROSEMIDE 20 MG TAB PO SCH (09:00)
[2021-08-06] MEDS ORDERED: HYDROMORPHONE 1MG/1ML INJ IV PRN (09:15)
[2021-08-06] MEDS ORDERED: Vancomycin IV 1 GM in SODIUM CHLORIDE 0.9% 250ML 250 ML IV SCH (12:00)
[2021-08-06 12:33] VITALS: BP 129/81
[2021-08-06] MEDS ORDERED: HYDROCODONE/APAP 10MG-325MG TAB PO PRN (13:45)
[2021-08-06 16:00] VITALS: BP 127/80
[2021-08-06] MEDS ORDERED: AUGMENTIN 500-1 EACH PO (18:00)
[2021-08-06] MEDS ORDERED: DOXYCYCLINE HY100 MG PO (18:01)
== END 2021-08-06 18:22 | disposition home or self-care (01) | DRG 158 ==
LOC: ER 15:00 → ERHOLD 17:12 → MED/SURG2 18:15
PROVIDERS: ADMIT Family Medicine; ATTEND Family Medicine
PROC: 0CJY3ZZ Inspection of Mouth and Throat, Percutaneous Approach (ICD-10-PCS; principal; 2021-08-03)
DX: K12.2 Cellulitis and abscess of mouth (principal); L03.211 Cellulitis of face; K04.6 Periapical abscess with sinus; I10 Essential (primary) hypertension; G43.909 Migraine, unspecified, not intractable, without status migrainosus; K21.9 Gastro-esophageal reflux disease without esophagitis; E78.5 Hyperlipidemia, unspecified; Z88.0 Allergy status to penicillin; K21.00 Gastro-esophageal reflux disease with esophagitis, without bleeding; I25.10 Atherosclerotic heart disease of native coronary artery without angina pectoris; K01.1 Impacted teeth; Z20.822 Contact with and (suspected) exposure to COVID-19
CPT/HCPCS: 36415; 70491; 80053; 80202; 82550; 82553; 83605; 83735; 84484; 85025; 85610; 85730; 87040; 94799; 99284; J1100; J1170; J1885; J2185; J2270; J2405; J2543; J3370; J7030; J7040; J7050; Q0162; U0002

== ENCOUNTER → 2022-01-28 | Outpatient (CLI) | payer MEDICARE, OTHER ==
[~2022-01-28] MED LIST changes: +ATORVASTATIN CA40 MG PO; +AUGMENTIN 500-1 EACH PO; +DOXYCYCLINE HY100 MG PO; +TYLENOL 3 PO
== END ==
LOC: CT 13:05
PROVIDERS: ATTEND Nurse Practitioner Adult Health
DX: R51.9 Headache, unspecified (principal); Z91.81 History of falling
CPT/HCPCS: 70450

== ENCOUNTER 2022-04-15 04:07 | Emergency (ER) | payer MEDICARE, OTHER ==
[~2022-04-15] VITALS: Ht 315 cm; Wt 73.9 kg
[2022-04-15] MEDS ORDERED: KETOROLAC TROMETHAMINE 30 MG/ML VIAL IM STA (05:43)
[2022-04-15] MEDS ORDERED: NAPROXEN250 MG PO (05:45)
[2022-04-15 05:52] VITALS: BP 122/69
[2022-04-15] MEDS ORDERED: KETOROLAC TROMETHAMINE 30 MG/ML VIAL ONE (05:56)
== END 2022-04-15 05:55 | disposition home or self-care (01) ==
LOC: ER 04:59
DX: S00.81XA Abrasion of other part of head, initial encounter (principal); W01.0XXA Fall on same level from slipping, tripping and stumbling without subsequent striking against object, initial encounter; Y93.01 Activity, walking, marching and hiking; Y92.89 Other specified places as the place of occurrence of the external cause; K21.9 Gastro-esophageal reflux disease without esophagitis
CPT/HCPCS: 70450; 72125; 99283; J1885

== ENCOUNTER 2022-09-27 08:41 | Emergency (ER) | payer MEDICARE, OTHER ==
[~2022-09-27] VITALS: Ht 162.6 cm; Wt 73.9 kg
[~2022-09-27 08:41] MED LIST changes: +AZITHROMYCIN250 MG PO; +BENZONATATE100 MG PO; +IBUPROFEN800 MG PO; +NAPROXEN250 MG PO; +POTASSIUM CHLO20 ME1 PO; +PREDNISONE20 MG PO; +PROAIR DIGIHAL90 MCG INH
[2022-09-27] MEDS ORDERED: ACETAMINOPHEN 325 MG TAB PO ONE (09:00)
[2022-09-27] MEDS ORDERED: TETANUS/DIPHTHERIA TOX ADULT 0.5 ML SYR ONE (09:12)
[2022-09-27] MEDS ORDERED: TETANUS/DIPHTHERIA TOX ADULT 0.5 ML SYR IM ONE (09:30)
[2022-09-27] MEDS ORDERED: ULTRAM 50MG50 MG PO ×2 (09:31→09:35)
[2022-09-27] MEDS ORDERED: KETOROLAC TROMETHAMINE 60 MG/2 ML VIAL IM ONE (09:45)
[2022-09-27] MEDS ORDERED: HYDROCODONE/APAP 5MG-325MG TAB PO PRN (09:45)
[2022-09-27] MEDS ORDERED: IOPAMIDOL 370 MG/ML 100 ML INFUS..BTL INJ ONE (11:02)
== END 2022-09-27 11:49 | disposition home or self-care (01) ==
LOC: ER 08:46
DX: S42.031A Displaced fracture of lateral end of right clavicle, initial encounter for closed fracture (principal); S00.83XA Contusion of other part of head, initial encounter; W01.0XXA Fall on same level from slipping, tripping and stumbling without subsequent striking against object, initial encounter; Y93.01 Activity, walking, marching and hiking; Y92.89 Other specified places as the place of occurrence of the external cause; K21.9 Gastro-esophageal reflux disease without esophagitis
CPT/HCPCS: 70450; 71046; 72125; 73000; 90471; 90714; 99284; J1885; Q9967

== ENCOUNTER → 2024-09-27 | Outpatient (REF) | payer MEDICARE, OTHER ==
[~2024-09-27] MED LIST changes: +ELIQUIS2.5 MG PO; +INDERAL10 MG PO; +PANTOPRAZOLE SO40 MG PO; +PROMETHAZINE HC25 M1 PO; +SUCRALFATE1 GM PO; +ULTRAM 50MG50 MG PO
== END ==
LOC: MRI 12:57
PROVIDERS: ATTEND Family Medicine
DX: G31.84 Mild cognitive impairment of uncertain or unknown etiology (principal)
CPT/HCPCS: 70551

== ENCOUNTER 2025-03-11 11:05 | Emergency (ER) | payer MEDICARE, OTHER ==
[~2025-03-11] VITALS: Ht 162.6 cm; Wt 83.9 kg
[2025-03-11] MEDS ORDERED: IBUPROFEN600 MG PO (14:00)
[2025-03-11 14:15] VITALS: PULSE 71; RESP 20; TEMP 98.3; O2SAT 98
== END 2025-03-11 14:15 | disposition home or self-care (01) ==
LOC: FSED 11:13
DX: M79.672 Pain in left foot (principal); S92.192A Other fracture of left talus, initial encounter for closed fracture; M77.32 Calcaneal spur, left foot; I10 Essential (primary) hypertension; K21.9 Gastro-esophageal reflux disease without esophagitis; Z95.1 Presence of aortocoronary bypass graft; Z87.19 Personal history of other diseases of the digestive system
CPT/HCPCS: 99283